=== PATIENT | female | born 1970 | race Caucasian/White ===

== ENCOUNTER → 2021-08-16 08:59 | Outpatient (CLI) | payer OTHER, SELFPAY ==
--- NOTE | ~2021-08-16 | XR_ITS ---
XR knee LT 3V DATE: 08/16/2021 09:11 INDICATION: Left knee pain TECHNIQUE: [place], AP and lateral views COMPARISON: None FINDINGS: There is mild suprapatellar knee joint effusion. There is tricompartment osteoarthritis including periarticular spurring particularly at the patellofe moral compartment. No fracture or dislocation, radiopaque intra-articular loose body or chondrocalcinosis. No periosteal reaction or bone destruction. IMPRESSION: Tricompartment osteoarthritis and mild suprapatellar knee joint effusion Reviewed, dictated and finalized at location A. IMPRESSION: Tricompartment osteoarthritis and mild suprapatellar knee joint eff usion
--- NOTE | ~2021-08-16 | XR_ITS ---
XR knee RT 3V DATE: 08/16/2021 09:11 INDICATION: Knee pain TECHNIQUE: [place], AP and lateral views COMPARISON: None FINDINGS: No fracture or dislocation is detected. Mild suprapatellar knee joint effusion. There is enthesopathy of the superior pole of the patella at the quadriceps tendon insertion site. There is tricompartment osteoarthritis, with periarticular spurring at all 3 compartments, moderate l oss of joint space at the medial compartment. No radiopaque intra-articular loose body or chondrocalcinosis. IMPRESSION: Tricompartment osteoarthritis Suprapatellar knee joint effusion Reviewed, dictated and finalized at location A.
== END ==
PROVIDERS: PCP Family Medicine; Visit Provider Physician Assistant
DX: M17.0 Bilateral primary osteoarthritis of knee (principal); M25.461 Effusion, right knee; M25.462 Effusion, left knee
CPT/HCPCS: 73562

== ENCOUNTER → 2021-11-08 09:21 | Outpatient (CLI) | payer OTHER, SELFPAY ==
[2021-11-08 20:34] LABS: SARS-CoV-2 RNA PCR Negative
== END ==
PROVIDERS: PCP Family Medicine; Visit Provider Physician Assistant
DX: R68.89 Other general symptoms and signs (principal); Z20.822 Contact with and (suspected) exposure to COVID-19
CPT/HCPCS: C9803; U0003; U0005

== ENCOUNTER → 2023-01-15 14:51 | Outpatient (CLI) | payer BC, SELFPAY ==
--- NOTE | ~2023-01-15 | XR_ITS ---
XR knee RT 3V DATE: 01/15/2023 15:07 INDICATION: Right knee pain for 4 days. No injury. TECHNIQUE: [place] and standing AP and lateral views COMPARISON: None FINDINGS: There is moderate tricompartment osteoarthritis, most prominent at the medial compartment w ith moderately severe loss of joint space, mild periarticular spurring. There is periarticular spurri ng at the lateral compartment and to a greater extent patellofemoral compartment. Small suprapatellar knee joint effusion is suggested. No radiopaque intra-articular loose body or chondrocalcinosis. No fracture or dislocation, periosteal reaction or bone destruction. IMPRESSION: Tricompartment osteoarthritis Small suprapatellar knee joint effusion is suspected Reviewed, dictated and finalized at location B. [employer]
== END ==
PROVIDERS: PCP Family Medicine; Visit Provider Physician Assistant
DX: M17.11 Unilateral primary osteoarthritis, right knee (principal); M25.461 Effusion, right knee
CPT/HCPCS: 73562

== ENCOUNTER 2023-08-13 15:57 | Outpatient (CLI) | payer BC, SELFPAY ==
--- NOTE | 2023-08-13 16:03 | ECG_ITS ---
Measurements Intervals [place] Rate: 68 P: 14 TN: 150 QRS: 43 QRSD: 92 T: -9 QT: 378 QTc: 404 Interpretive Statements SINUS RHYTHM NONSPECIFIC T-WAVE ABNORMALITY NO PREVIOUS ECG AVAILABLE FOR COMPARISON Electronically Signed On 08-13-2023 19:21:20 CDT by Gretchen Brito M.D.
== END 2023-08-13 15:58 | disposition home or self-care (01) ==
LOC: ANHLAB 15:58
PROVIDERS: PCP Family Medicine; Visit Provider Family Medicine
DX: E78.2 Mixed hyperlipidemia (principal); Z01.818 Encounter for other preprocedural examination
CPT/HCPCS: 93005

== ENCOUNTER → 2023-09-26 14:20 | Outpatient (CLI) | payer BC, SELFPAY ==
--- NOTE | ~2023-09-26 | MR_ITS ---
EXAMINATION: MR lumbar spine wo con DATE: 09/26/2023 15:37 INDICATION: Radiculopathy, lumbar region. TECHNIQUE: Magnetic resonance imaging (MRI) of the lumbar spine was performed without intravenous con trast. Sequences included sagittal T2-weighted FSE, sagittal T2-weighted FS FSE, sagittal T1-weighted FSE, and axial T2-weighted FSE. COMPARISON: None FINDINGS: There is 3 degrees levocurvature of thoracolumbar spine. Vertebral body heights are normal. There is mildly decreased disc height at L3-L4. The distal spinal cord signal intensity is normal. T he conus medullaris is at L1. There is peripheral displacement of the cauda equina at L5 on S1, consi stent with arachnoiditis. There are 2.9 cm and 2.1 cm cysts in left ovary, likely benign. The followi ng disc levels are specifically discussed: L1-L2: The disc does not extend beyond the endplate margin. There is no facet joint osteoarthritis. T here is no neural foraminal stenosis. There is no central canal stenosis. L2-L3: The disc does not extend beyond the endplate margin. There is mild right facet joint osteoarth ritis. There is no neural foraminal stenosis. There is no central canal stenosis. L3-L4: The disc is bulging. There is mild bilateral facet joint osteoarthritis. There is mild bilater al neural foraminal stenosis. There is mild central canal stenosis. L4-L5: The disc is bulging. There is severe bilateral facet joint osteoarthritis. There is mild bilat eral neural foraminal stenosis. There is no central canal stenosis. L5-S1: There is a right subarticular zone protrusion with annular fissure. There is severe bilateral facet joint osteoarthritis. There is mild bilateral neural foraminal stenosis. There is mild central canal stenosis. IMPRESSION: 1. Mild lumbar spondylosis. 2. Arachnoiditis. Reviewed, dictated and finalized at location A. HERDER
--- NOTE | ~2023-09-26 | MR_ITS ---
EXAMINATION: MR sacrum wo con DATE: 09/26/2023 15:37 INDICATION: Neoplasm of unspecified behavior of bone. TECHNIQUE: Magnetic resonance imaging (MRI) of the sacrum was performed without intravenous contrast. COMPARISON: MRI 12/17/2018 FINDINGS: Bone alignment is normal. No fracture. There is a 4.2 x 2.0 x 2.4 cm cyst that fills the thecal sac a t L5 and S1 with peripheral displacement of the cauda equina. Partially visualized is a 5.9 x 3.4 cm mass between right gluteus renard and gluteus medius muscles, increased in size from 3.9 x 2.3 cm on 12/17/18. There is a 3.5 cm cystic mass in left ovary with peripheral material. There is a 2.5 cm cyst in left ovary, likely benign. IMPRESSION: 1. Partially visualized 5.9 cm mass between right gluteus renard and gluteus medius muscles with inc rease in size from 12/17/2018. 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 CT-guided b iopsy is recommended if not previously performed. 2. 4.2 cm cyst, which fills the thecal sac at L5 and S1, likely an arachnoid cyst. 3. 3.5 cm cystic mass in left ovary, which may be benign or malignant. Pelvis ultrasound is recommend ed. Reviewed, dictated and finalized at location A. ALT MIXER IMPRESSION: 1. Partially visualized 5.9 cm mass between right gluteus renard and gluteus m edius muscles with increase in size from 12/17/2018. 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 CT-guided biopsy is recommended if not previou sly performed. 2. 4.2 cm cyst, which fills the thecal sac at L5 and S1, likely an arachnoid cy st. 3. 3.5 cm cystic mass in left ovary, which may be benign or malignant. Pelvis u ltrasound is recommended.
== END ==
PROVIDERS: PCP Family Medicine; Visit Provider Family Medicine
DX: D49.2 Neoplasm of unspecified behavior of bone, soft tissue, and skin (principal); R93.89 Abnormal findings on diagnostic imaging of other specified body structures; N83.202 Unspecified ovarian cyst, left side; M47.26 Other spondylosis with radiculopathy, lumbar region
CPT/HCPCS: 72148; 72195

== ENCOUNTER 2023-10-23 15:50 | Emergency (ER) | payer BC, SELFPAY ==
--- NOTE | ~2023-10-23 | XR_ITS ---
EXAMINATION: XR chest 1V portable DATE: 10/23/2023 16:44 INDICATION: Palpitations. TECHNIQUE: A single frontal view of the chest was obtained. COMPARISON: Chest 2 views 01/08/2015 FINDINGS: There is no pneumonia, pleural effusion, or pneumothorax. The heart size is normal. IMPRESSION: 1. No acute cardiopulmonary disease. Reviewed, dictated and finalized at location A. R MACHINE CUTTER
--- NOTE | 2023-10-23 15:58 | ECG_ITS ---
Measurements Intervals [place] Rate: 91 P: 12 CT: 167 QRS: 9 QRSD: 87 T: -10 QT: 352 QTc: 434 Interpretive Statements SINUS RHYTHM NONSPECIFIC T-WAVE ABNORMALITY ABNORMAL ECG COMPARED TO ECG 08/13/2023 16:08:03 NO SIGNIFICANT CHANGES Electronically Signed On 10-24-2023 13:49:19 EMB[employer] SYSTEMS SOFTWARE DEVELOPER by Sean Lynn M.D.
[2023-10-23 16:00] VITALS: BP 182/95; PULSE 93; RESP 20; TEMP 36.6; O2SAT 100
--- NOTE | 2023-10-23 16:18 | ED.ARRPALP ---
HPI - Arrhythmia/Palpitations General Chief Complaint: Arrhythmia/Palpitations Stated Complaint: Increased heart rate Time Seen by Provider: 10/23/23 16:05 Source: patient Mode of arrival: ambulatory Limitations: no limitations History of Present Illness HPI narrative: Patient is a pleasant 53-year-old female with past medical history as noted below who presents emergency department today for evaluation of palpitations, elevated heart rate. she has no chest pain or shortness of breath. Patient states that she has all of her OBGYN recently her blood pressure was elevated, she recently also saw a neurologist due to a tumor which she is being seen for, she has had a lot of stress. Her blood pressure is typically is elevated when she is at the doctor's office. She did not solve primary care provider just a few days ago and they were going to put her on lisinopril 2.5 mg daily. Advised her to go home and try to take a dose of valium to see if this helped her. She has had a lot of anxiety. She was at work today and started to feel crummy and was going to just go home and take it easy. She states that she then looked at her watch heart rate in the 130s. She denies any cardiac history. Denies any history of being on medications for high blood pressure. Denies any thoughts of suicide. Denies any gait abnormality, worsening headache, fever, chills, nausea, vomiting, diarrhea, abdominal pain, recent exposure to any illness, urinary symptoms, numbness or tingling of the lower extremities, or any other symptoms. denies any hx of PE or DVT. denies recent travel. denies lower leg swelling. denies vision changes. Related Data Allergies Allergy/AdvReac Type Severity Reaction Status Date / Time No Known Allergies Allergy Verified 10/22/23 09:14 Review of Systems Review of Systems: CONSTITUTIONAL: Denies fever, chills, or sweats. EYES: Denies visual changes, redness, or discharge. ENT: Denies rhinorrhea, congestion, sore throat, or otalgia. CARDIOVASCULAR: +palpitations. denies chest pain denies edema. RESPIRATORY: Denies cough or dyspnea. GASTROINTESTINAL: Denies abdominal pain, nausea, vomiting, or diarrhea. GENITOURINARY: Denies dysuria or hematuria. SKIN: Denies rash or itching. MUSCULOSKELETAL: Denies back pain, joint pain, or myalgia. NEUROLOGIC: + headache. denies dizziness. Denies numbness, or weakness. PSYCHIATRIC: +anxiety/stress. denies SI. All systems reviewed & are unremarkable except as noted in HPI and below PMFSH Past Medical History Medical History Anxiety Lumbar disc disease Mixed hyperlipidemia Surgical History Surgical History H/O hysterectomy with unilateral oophorectomy Social History Social History Smoking status: Never smoker Second hand tobacco smoke exposure: No Alcohol intake: current Alcohol use details: 0-1 drink per week Substance use: never Substance use type: does not use Lack of Transportation: No Lack of Food: Never True Current Housing: I Have Housing Concerned About Future Housing: No Difficulty Paying Gas/Electric Bills: No Difficulty Paying for Meds: No Currently Unemployed: No Education: Bachelor's Degree Difficulty w/ Childcare or Family Care: No Living arrangements: with family Gender identity (if verbalized by the patient): Female Spiritual care concerns: No Agree to blood products: Yes Exam Narrative: GENERAL: Well-appearing, well-nourished, anxious. non-toxic. HEAD: Normocephalic, atraumatic. EYES: PERRLA and EOMI. ENT: Nares clear, no rhinorrhea or epistaxis. Mucous membranes moist. NECK: Supple. CHEST: Clear to auscultation. No respiratory distress. HEART: Regular rate and rhythm. No murmur heard. Normal peripheral pulses. ABDOMEN: Soft, nontender, nondistended, normal a
[2023-10-23 17:01] LABS: Basophils Absolute Auto 0.1 K/mm3 (0.0-0.1); Basophils Percent Auto 0.6 % (0.2-1.2); Eosinophils Absolute Auto 0.1 K/mm3 (0-0.3); Eosinophils Percent Auto 1.7 % (0-4.4); Hematocrit 43.3 % (37.0-47.0); Hemoglobin 13.9 g/dL (12.0-15.0); Immature Granulocyte Absolute 0.02 K/mm3 (0.00-0.031); Immature Granulocyte Percent A 0.2 % (0-0.5); Lymphocytes Absolute Auto 1.71 K/mm3 (0.9-3.2); Lymphocytes Percent Auto 20.6 % (18.3-44.2); Mean Corpuscular HGB Conc 32.1 g/dl (32-36); Mean Corpuscular Hemoglobin 29.8 pg (26-34); Mean Corpuscular Volume 92.7 fl (80-100); Mean Platelet Volume 11.2 fl (7.4-10.4); Monocytes Absolute Auto 0.5 K/mm3 (0.1-0.6); Monocytes Percent Auto 5.6 % (2.6-8.5); Neutrophils Absolute Auto 5.9 K/mm3 (1.3-6.7); Neutrophils Percent Auto 71.3 % (45.5-73.1); Platelet Count Result 259 k/mm3 (150-375); Red Blood Count 4.67 M/mm3 (4.2-5.4); Red Cell Distribution Width 12.8 % (11.5-14.5); White Blood Count 8.3 K/mm3 (4.5-10.0)
[2023-10-23 17:11] LABS: Alanine Aminotransferase 41 U/L (6-35); Albumin Level 4.9 g/dL (3.5-5.1); Alkaline Phosphatase 59 U/L (38-126); Anion Gap 8 mmol/L (8-16); Aspartate Amino Transferase 31 U/L (14-36); Bilirubin,Total 0.6 mg/dL (0.2-1.3); Blood Urea Nitrogen 14 mg/dL (7-17); Calcium 9.8 mg/dL (8.4-10.2); Carbon Dioxide 28 mmol/L (22-30); Chloride 103 mmol/L (98-107); Estimated CRCL calculation 75 ml/min; Estimated Glomerular Filt Rate > 60; Glucose 96 mg/dL (65-110); Magnesium 2.1 mg/dL (1.6-2.3); Potassium 3.5 mmol/L (3.4-5.0); Sodium 139 mmol/L (137-145)
[2023-10-23 17:15] VITALS: PULSE 82; RESP 13
[2023-10-23 17:20] LABS: INR 0.9; Prothrombin Time 12.4 Seconds (11.1-14.7)
[2023-10-23 17:22] LABS: Troponin I < 0.012 ng/mL (0.000-0.034)
[2023-10-23 17:26] LABS: D Dimer < 0.27 ug/mL (<0.48)
[2023-10-23 18:02] VITALS: BP 159/85; PULSE 83; RESP 17; O2SAT 99
[2023-10-23] MEDS: lisinopriL 2.5 MG TABLET PO (18:13)
[2023-10-23] MEDS: LORazepam (*CRX) 1 MG TABLET PO (18:14)
[2023-10-23 18:44] VITALS: O2SAT 100
[2023-10-23 19:06] VITALS: BP 143/76; PULSE 71; RESP 18; O2SAT 98
== END 2023-10-23 19:24 | disposition home or self-care (01) ==
PROVIDERS: Emergency Provider Nurse Practitioner; PCP Family Medicine
DX: R00.2 Palpitations (principal); F43.9 Reaction to severe stress, unspecified; F41.9 Anxiety disorder, unspecified; R03.0 Elevated blood-pressure reading, without diagnosis of hypertension; E78.2 Mixed hyperlipidemia; M51.36 Other intervertebral disc degeneration, lumbar region; Z90.710 Acquired absence of both cervix and uterus; Z90.721 Acquired absence of ovaries, unilateral; R94.31 Abnormal electrocardiogram [ECG] [EKG]
CPT/HCPCS: 36415; 71045; 80053; 83735; 84443; 84484; 85025; 85380; 85610; 93005; 99284; A9270

== ENCOUNTER 2023-12-11 12:50 | Outpatient (CLI) | payer BC, SELFPAY ==
--- NOTE | ~2023-12-11 | MR_ITS ---
MRI of the sacrum Clinical history osteoarthrosis COMPARISON: 09/26/2023 TECHNIQUE: Coronal T1-weighted, T2-weighted, and T2 fat-sat images, axial T1-weighted and T2 fat-sat and T1 fat-sat images were performed. Sagittal proton-density fat-sat images were performed. Followin g intravenous administration of 14 cc MultiHance gadolinium, T1-weighted fat-sat imaging was performe d in the axial and coronal planes. FINDINGS: Osseous structures are intact. Joint spaces are preserved. No bone marrow signal abnormalit y seen. There is a 2.4 x 2.0 x 4.3 cm cystic mass largely filling the spinal canal at the L5-S1 levels, with associated marked splaying of the nerve roots around the mass. This is essentially unchanged from dk or exam. Partially imaged enhancing soft tissue mass present in the right gluteal region. No intraperitoneal abnormality seen in the visualized pelvis. IMPRESSION: 2.4 x 2.0 x 4.3 cm cystic mass within the spinal canal at L5-S1 levels, with associated marked splayi ng of the nerve roots around the mass. This is essentially unchanged from prior exam. Likely diagnost ic consideration includes arachnoid cyst, or possibly epidermoid cyst or cystic neurofibroma. Reviewed, dictated and finalized at location . F DEVELOPMENT OFFICER IMPRESSION: 2.4 x 2.0 x 4.3 cm cystic mass within the spinal canal at L5-S1 levels, with as sociated marked splaying of the nerve roots around the mass. This is essentiall y unchanged from prior exam. Likely diagnostic consideration includes arachnoid cyst, or possibly epidermoid cyst or cystic neurofibroma.
--- NOTE | ~2023-12-11 | MR_ITS ---
EXAMINATION: MR hip RT wo/w con DATE: 12/11/2023 15:29 INDICATION: Neurofibromatosis, unspecified. TECHNIQUE: Magnetic resonance imaging (MRI) of the right hip was performed without and with 14 mL Mul tiHance intravenous contrast. COMPARISON: Sacrum MRI 09/26/2023 FINDINGS: Bone alignment is normal. No fracture. There is mild osteoarthritis of the hips. There is a 9 mm enha ncing mass in right gluteus medius muscle. There is a 5.9 x 2.8 cm enhancing mass between right glute us medius and gluteus renard muscles. There is a 2.4 x 2.0 cm enhancing mass in left inguinal region . There is a 4.6 x 1.9 x 2.3 cm cystic mass with peripheral enhancement in the thecal sac at L5 and S 1 with peripheral displacement of the cauda equina. There is a 4 mm enhancing mass along the cauda eq uina at L4. All of these findings are consistent with neurofibromas. There is diverticulosis of the c olon without evidence of diverticulitis. There is no ascites. IMPRESSION: 1. Multiple masses in the pelvis including a cystic mass in the inferior thecal sac, consistent with neurofibromas. Reviewed, dictated and finalized at location A. RETREADER
--- NOTE | ~2023-12-11 | MR_ITS ---
MRI of the lumbar spine Clinical History: Neurofibromatosis Technique: Axial T2-weighted images, and sagittal T1-weighted, T2-weighted, and T2 fat-sat images wer e acquired. Following intravenous administration of 14 cc MultiHance gadolinium, T1-weighted fat-sat imaging was performed in the axial and sagittal planes. COMPARISON: 09/26/2023 Findings: There is no fracture or dislocation of the lumbar spine. Vertebral bodies maintain normal h eight and alignment. No bone marrow signal reality seen. At L1-L2, there is no disc bulge or herniation. There is mild facet arthropathy. No central canal kristi nosis or neural foraminal narrowing. At L2-L3, there is no disc bulge or herniation. There is minimal facet arthropathy. No central canal stenosis or neural foraminal narrowing. L3-L4, there is minimal disc bulge and minimal facet arthropathy. No central canal stenosis or neural foraminal narrowing. At L4-L5, there is minimal disc bulge and moderate to advanced facet arthropathy. No central canal st enosis or definite neural foraminal narrowing. At L5-S1, there is no disc bulge or herniation. There is moderate to advanced facet arthropathy. Ther e is a peripherally enhancing cystic mass within the spinal canal at the L5-S1 levels, measuring 2.4 x 2.0 cm in transverse dimensions, and 4.5 cm in craniocaudal extent along the long axis of the spina l canal at this region. Mass effect results in slight flattening of the nerve roots peripherally. Livan ral foramina at the L5-S1 level are intact. Paravertebral soft tissues otherwise are unremarkable. Postcontrast images initially thin peripheral enhancement of the aforementioned cystic mass, but no other abnormal postcontrast enhancement identi fied. Impression: 2.4 x 2.0 x 4.5 cm intradural cystic mass at the L5-S1 level, as detailed above. Mass effect results in severe splaying of the nerve roots peripherally at these levels. Diagnostic considerations would i nclude spinal epidermoid cyst or possibly arachnoid cyst. Minimal degenerative spondylosis otherwise normal lumbar spine. Reviewed, dictated and finalized at location M. MENTAL IRONWORKING SUPERVISOR Impression: 2.4 x 2.0 x 4.5 cm intradural cystic mass at the L5-S1 level, as detailed above . Mass effect results in severe splaying of the nerve roots peripherally at the se levels. Diagnostic considerations would include spinal epidermoid cyst or po ssibly arachnoid cyst. Minimal degenerative spondylosis otherwise normal lumbar spine.
== END 2023-12-11 12:51 ==
LOC: GOSHIMG 12:55
PROVIDERS: PCP Neurological Surgery
DX: Q85.00 Neurofibromatosis, unspecified (principal); M47.896 Other spondylosis, lumbar region
CPT/HCPCS: 72158; 72197; 73723; A9577

== ENCOUNTER 2024-10-27 08:35 | Outpatient (CLI) | payer BC, SELFPAY ==
[2024-10-27 18:45] LABS: Basophils Absolute Auto 0.1 K/mm3 (0.0-0.1); Eosinophils Absolute Auto 0.2 K/mm3 (0-0.3); Eosinophils Percent Auto 3.5 % (0-4.4); Hematocrit 42.9 % (37.0-47.0); Hemoglobin 13.7 g/dL (12.0-15.0); Immature Granulocyte Absolute 0.01 K/mm3 (0.00-0.031); Immature Granulocyte Percent A 0.2 % (0-0.5); Lymphocytes Absolute Auto 1.28 K/mm3 (0.9-3.2); Lymphocytes Percent Auto 26.1 % (18.3-44.2); Mean Corpuscular HGB Conc 31.9 g/dl (32-36); Mean Corpuscular Hemoglobin 30.7 pg (26-34); Mean Corpuscular Volume 96.2 fl (80-100); Mean Platelet Volume 11.9 fl (7.4-10.4); Monocytes Absolute Auto 0.5 K/mm3 (0.1-0.6); Monocytes Percent Auto 9.4 % (2.6-8.5); Neutrophils Absolute Auto 2.9 K/mm3 (1.3-6.7); Neutrophils Percent Auto 59.8 % (45.5-73.1); Platelet Count Result 236 k/mm3 (150-375); Red Blood Count 4.46 M/mm3 (4.2-5.4); Red Cell Distribution Width 13.1 % (11.5-14.5); White Blood Count 4.9 K/mm3 (4.5-10.0)
[2024-10-27 19:11] LABS: Alanine Aminotransferase 26 U/L (6-35); Alkaline Phosphatase 59 U/L (38-126); Anion Gap 2 mmol/L (4-12); Aspartate Amino Transferase 34 U/L (14-36); Bilirubin,Total 0.6 mg/dL (0.2-1.3); Blood Urea Nitrogen 25 mg/dL (7-17); Calcium 9.4 mg/dL (8.4-10.2); Carbon Dioxide 30 mmol/L (22-30); Chloride 105 mmol/L (98-107); Cholesterol 175 mg/dL (0-200); Estimated Glomerular Filt Rate > 60; Glucose 75 mg/dL (65-110); HDL Direct 74 mg/dL; Potassium 4.1 mmol/L (3.4-5.0); Sodium 137 mmol/L (137-145); Triglycerides 62 mg/dL (<150)
[2024-10-27 19:22] LABS: LDL Cholesterol Direct 78 mg/dL
== END 2024-10-27 08:36 | disposition home or self-care (01) ==
LOC: ANHGOSHLAB 08:35
PROVIDERS: PCP Family Medicine; Visit Provider Family Medicine
DX: E78.2 Mixed hyperlipidemia (principal); R53.83 Other fatigue; I10 Essential (primary) hypertension; E53.8 Deficiency of other specified B group vitamins
CPT/HCPCS: 36415; 80053; 80061; 82607; 84443; 85025